=== PATIENT | female | born 1955 | race Caucasian/White ===

== ENCOUNTER 2016-10-13 21:26 | Emergency (ER) | payer BC ==
[2016-10-13 21:50] VITALS: BP 120/72
--- NOTE | 2016-10-13 23:27 | UC ---
Skin Complaint HPI - HPI Summary HPI Summary: The patient comes in today for: 1. two ticks pulled off today and rash at the tick sites. Onset: She pulled the ticks off today. She thinks that the ticks were present for two days. Palliative/provocative: Non-tender. Quality: Non-tender Region: Anterior upper right thigh and behind the left leg. Severity: 0/10 Time: Constant. Associated symptoms: No fevers, or joint pains, etc. * - History of Current Complaint Chief Complaint: [facility] Time Seen by Provider: 10/13/16 23:19 Stated Complaint: TICK Hx Obtained From: Patient - Allergy/Home Medications Allergies/Adverse Reactions: Allergies Allergy/AdvReac Type Severity Reaction Status Date / Time No Known Allergies Allergy Verified 10/13/16 21:50 Home Medications: Home Medications Rosuvastatin (NF) [Crestor (NF)] 5 mg PO 1700 10/13/16 [History Confirmed ] Review of Systems Constitutional: Negative Skin: Rash Eyes: Negative ENT: Negative Respiratory: Negative Cardiovascular: Negative Gastrointestinal: Negative Genitourinary: Negative All Other Systems Reviewed And Are Negative: Yes PMH/Surg Hx/FS Hx/Imm Hx Previously Healthy: No Endocrine History Of: Reports: Dyslipidemia Denies: Diabetes, Thyroid Disease, Hyperthyroidism, Hypothyroidism Cardiovascular History Of: Denies: Cardiac Disorders, Hypertension, Pacemaker/ICD, Myocardial Infarction , Congestive Heart Failure, Atrial Fibrillation, Deep Vein Thrombosis, Bleeding Disorders Respiratory History Of: Denies: COPD, Asthma, Bronchitis, Pneumonia, Pulmonary Embolism GI/ History Of: Denies: Gastroesophageal Reflux, Ulcer, Gastrointestinal Bleed, Gall Bladder Disease, Kidney Stones, Diverticulitis, Renal Disease, Urosepsis Neurological History Of: Denies: TIA, CVA, Dementia, Seizures, Migraine Psychological History Of: Denies: Anxiety, Depression, Bipolar Disorder, Schizophrenia, Post Traumatic Stress Disorder Cancer History Of: Denies: Lung Cancer, Colorectal Cancer, Breast Cancer, Prostate Cancer, Cervical Cancer Other History Of: Negative For: HIV, Hepatitis B, Hepatitis C, Anticoagulant Therapy - Surgical History Surgical History: None - Family History Known Family History: Negative: Cardiac Disease, Hypertension - Social History Occupation: Employed Full-time Alcohol Use: Occasionally Substance Use Type: None Smoking Status (MU): Never Smoked Tobacco Physical Exam Triage Information Reviewed: Yes Appearance: Well-Appearing, No Pain Distress, Well-Nourished Vital Signs: Initial Vital Signs Temp 98.9 F 10/13/16 21:47 Pulse 70 10/13/16 21:47 Resp 18 10/13/16 21:47 BP 120/72 10/13/16 21:47 Pulse Ox 98 10/13/16 21:47 Vital Signs Reviewed: Yes Eyes: Positive: Conjunctiva Clear. Negative: Discharge ENT: Positive: Hearing grossly normal. Negative: Pharyngeal erythema, Nasal congestion, Nasal drainage, TM bulging, TM dull, TM red, Tonsillar swelling, Tonsillar exudate Dental: Negative: Gross Decay/Caries @, Dental Fracture @ Neck: Positive: Supple, Nontender, No Lymphadenopathy. Negative: Nuchal Rigidity Respiratory: Positive: Chest non-tender, Lungs clear, No respiratory distress, No accessory muscle use. Negative: Rhonchi, Wheezing Cardiovascular: Positive: RRR, No Murmur Abdomen Description: Positive: Nontender, No Organomegaly, Soft. Negative: Distended, Guarding Musculoskeletal: Positive: Strength Intact, ROM Intact, No Edema Neurological: Positive: Alert Psychological: Positive: Normal Response To Family, Age Appropriate Behavior, Consolable Skin: Positive: rashes - She has an erythematous macule with a dusky center of the upper right, anterior thigh. It is about 2-3 cm in diameter. She also has a similar lesion of the posterior lower left leg. 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 Course/Dx - Course Course Of Treatment: Patient is traveling from [place]. She was told to take the doxycycline for 2 weeks and follow up with her primary care provider there. - Differential Diagnoses - Skin Complaint Differential Diagnoses: Cellulitis, Tick Born Illness - Diagnoses Provider Diagnoses: tick bite. Cellulitis. Right upper anterior thigh, and posterior lower left leg. Discharge - Discharge Plan Condition: Stable Disposition: HOME Patient Education Materials: Tick Bite (ED), Lyme Disease (ED), Cellulitis (ED) Referrals: Non Staff,Doctor [Primary Care Provider] - 1 Week (Please see your primary care provider in a week to see how well you are doing. If you get worse, please be seen sooner in the ER or through us.)
[2016-10-13] MEDS ORDERED: DOXYcycline CAP(*) 100 MG PO ONE (23:31)
== END 2016-10-13 23:47 | disposition home or self-care (01) ==
LOC: UCEAST 21:26
DX: S70.361A Insect bite (nonvenomous), right thigh, initial encounter (principal); S80.862A Insect bite (nonvenomous), left lower leg, initial encounter; L03.119 Cellulitis of unspecified part of limb; W57.XXXA Bitten or stung by nonvenomous insect and other nonvenomous arthropods, initial encounter; Y93.9 Activity, unspecified; Y92.9 Unspecified place or not applicable; E78.5 Hyperlipidemia, unspecified
CPT/HCPCS: 99202; A9270-GY; G0463